=== PATIENT | male | born 1980 | race Caucasian/White ===

== ENCOUNTER → 2021-05-11 13:44 | Outpatient (CLI) | payer OTHER, SELFPAY ==
--- NOTE | 2021-05-11 | DI.MRI.S_ITS ---
PROCEDURE: MR KNEE LT WO CON INDICATIONS: Unspecified internal derangement of left knee TECHNIQUE: Noncontrast sagittal PD fast spin echo and T2 fast spin echo with fat saturation, sagittal 3-D FLASH with fat saturation; coronal T1 spin echo and PD fast spin echo with fat saturation, and axial PD fast spin echo with fat saturation through the knee. COMPARISON: [facility] [place], CR, XR KNEE ARTHRITIC SERIES BI, 03/07/2021, 14:24. FINDINGS: Menisci: Medial meniscus: Intact. Lateral meniscus: Intact. Cruciate ligaments: Anterior cruciate ligament: Intact. Posterior cruciate ligament: Intact. Medial structures: The medial collateral ligament: Intact. Semimembranosus tendon: Intact. Visualized pes anserinus tendons: Intact. Bursal fluid: none. Lateral structures: The lateral collateral ligament intact. Biceps femoris tendon appears intact. Popliteus tendon grossly unremarkable. Iliotibial band appears intact. Anterior structures: Quadriceps tendon: Intact. Medial patellofemoral ligament: Intact. Lateral patellofemoral ligament: Thickening and adjacent soft tissue edema at the patellar attachment. This suggests low-grade strain Patellar tendon: Mild tendinopathy. Anterior soft tissues: Prepatellar and superficial infrapatellar subcutaneous edema/fluid. Deep infrapatellar region: Normal. Bones and cartilage: Marrow: No focal marrow contusion or discrete low signal fracture line. Medial compartment: No focal chondral defect. Lateral compartment: No focal chondral defect. Patellofemoral compartment: Mild fissuring of the cartilage overlying the central femoral trochlea otherwise no focal chondral defect. Joint space: Effusion: No pathologic knee joint effusion. Popliteal fossa: Trace fluid between the semimembranosus and medial gastrocnemius tendons without definite formed cyst. Loose bodies: None. IMPRESSION: Patellar tendinopathy Low-grade strain of the lateral patellofemoral ligament, at the patellar attachment. Mild patellofemoral chondromalacia Dictated by: Aj Simpson M.D. on 05/11/2021 at 14:53 Approved by: Aj Simpson M.D. on 05/11/2021 at 14:59
== END ==
PROVIDERS: PCP Student in an Organized Health Care Education/Training Program; Referring Provider Physical Medicine & Rehabilitation Pain Medicine; Visit Provider Physical Medicine & Rehabilitation Pain Medicine
DX: M23.92 Unspecified internal derangement of left knee (principal); S76.112A Strain of left quadriceps muscle, fascia and tendon, initial encounter; M22.42 Chondromalacia patellae, left knee
CPT/HCPCS: 73721

== ENCOUNTER 2022-12-07 09:06 | Day surgery (SDC) | payer OTHER, SELFPAY ==
[2022-12-05 14:45] VITALS: BMI 27.9
[2022-12-07] MEDS: OXYMETAZOLINE NASAL SPRAY 15 ML 2 SPRAYS NASAL ×2 (09:49→11:30)
[2022-12-07] MEDS: LACTATED RINGERS 1,000 ML 42 ML IV ×2 (09:52→11:47)
[2022-12-07 09:55] VITALS: BP 115/80; PULSE 69; RESP 16; TEMP 36.6; O2SAT 99; BMI 26.9
--- NOTE | 2022-12-07 10:19 | PM.PREOP ---
Pre-operative Note Interval Note History & Physical reviewed/Exam performed by Physician: Yes Changes to H&P: No
--- NOTE | 2022-12-07 10:31 | PM.HP.1 ---
History of Present Illness History of Present Illness Date Patient Seen: 12/07/22 Time Patient Seen: 10:32 Chief complaint: Septoplasty Narrative: 41-year-old male with known right septal deviation and ongoing right greater than left nasal obstruction, last seen 10/25/2022 in clinic, presents for septoplasty and inferior turbinate reduction. No interval health changes, wishes to proceed. Patient History Medical History Chronic cough Chronic rhinitis Joint pain Mild sleep apnea Nasal obstruction Nasal septal deviation Nasal turbinate hypertrophy Neck injury Seasonal allergies Surgical History H/O vasectomy History of back surgery Hx of foot surgery (2002) Hx of LASIK Hx of shoulder surgery Hx of tonsillectomy Family & Social History Social History: household members spouse Tobacco & Substance use: Smoking Status Never smoker alcohol intake current alcohol intake frequency a few times a week Substance Use Type does not use Meds Home Medications and Allergies Home Medications Medication Instructions Recorded Confirmed Type bupropion HCl 300 mg 24 hr tablet, 300 mg PO DAILY 12/05/22 12/07/22 History extended release cetirizine 10 mg tablet 10 mg PO DAILY 12/05/22 12/07/22 History fluticasone propionate 50 1 spray intranasal DAILY 12/05/22 12/07/22 History mcg/actuation nasal spray,suspension loratadine 10 mg tablet (Claritin) 10 mg PO DAILY 12/05/22 12/07/22 History Allergies Allergy/AdvReac Type Severity Reaction Status Date / Time No Known Drug Allergies Allergy Verified 12/07/22 09:46 Review of Systems Review of Systems Narrative: Negative except as listed in the HPI Exam Vital Signs (past 8 hours): - 12/07/22 09:55 Temperature 97.8 F Pulse Rate 69 Respiratory Rate 16 Blood Pressure 115/80 Pulse Oximetry 99 Oxygen Delivery Method Room Air Oxygen Delivery Method Room Air Narrative Exam Narrative: Well-developed well-nourished, heart regular rate and rhythm without murmur, lungs clear to auscultation bilaterally Assessment & Plan Assessment & Plan narrative: Assessment: Nasal airway obstruction, septal deviation, inferior turbinate hypertrophy, chronic rhinitis and mild PARISH Plan: Following discussion of the material risks benefits complications and alternatives, the patient elected to proceed. Time Spent With Patient Critical Care time: I spent a total of [] minutes of critical care time on this patient's care today; this time is exclusive of procedural time.
--- NOTE | 2022-12-07 10:35 | PM.OP.1 ---
Operative Date/Time/Diagnoses Date of procedure: 12/07/22 Time of procedure: 11:57 Pre-op diagnosis: Nasal airway obstruction, septal deviation, inferior turbinate hypertrophy, mild PARISH, chronic rhinitis Post-op diagnosis: same Procedure & Clinicians Procedure: 1. Septoplasty 2. Bilateral inferior turbinate reduction via intramural cautery Same procedure as scheduled: Yes Indications: 41 Year old with the above diagnoses incompletely managed with medical therapy presents for the above procedure. Following discussion of the material risks benefits complications and alternatives, the patient elected to proceed. Surgeon: Chuy Thurman Click Yes if Unassisted: Yes Anesthesia Type: General and Local Operative Notes Findings: 3+ right septal deviation, bony and cartilaginous, [id number]-right inferior turbinate hypertrophy. RIGHT posterior small flap tear, few mm LEFT ant perforation. Estimated Blood Loss (mL): 40 Procedure in detail: Following identification and confirmation of consent as well as preoperative Afrin nasal spray, the patient was brought to the operating room suite and placed in the supine position. General endotracheal anesthesia was administered. I infiltrated the septum widely bilaterally with 1% lidocaine 1 100,000 epinephrine followed by temporary packing with cotton with Afrin and 4% lidocaine. Following sterile prep and drape, the packing was removed and I performed a right vel-transfixion incision, elevated the right mucoperichondrial and mucoperiosteal flap. I disarticulated near the bony/cartilaginous junction and elevated the left mucoperiosteal flap. Deviated portions of the perpendicular plate of the ethmoid and vomer were resected. The residual quadrilateral cartilage was further straightened by trimming it inferiorly as well as reducing the maxillary crest. A 2 mm strip of cartilage paralleling the residual 1 cm dorsal and caudal strut was resected to further straighten the quadrilateral cartilage. The hemitransfixion incision was closed with interrupted 5 0 chromic followed by a running 4 0 plain gut mattress suture to reapproximate the septal flaps. At case completion, 20/1000th of an inch silastic splints were placed bilaterally, sutured anteriorly with a single 4 0 nylon. The head of each inferior turbinate had been previously infiltrated with additional local anesthetic and a 25 gauge spinal needle was used to impale the length of the turbinate, with cautery on a setting of 15 activated on slow withdrawal over 2 passes on the LEFT, a single pass on the RIGHT. The turbinates were then outfractured. The procedure completed, sponge and needle counts were correct and the patient was extubated in the operating room and taken to recovery room in stable condition without known complication. Postoperative care: Nasal saline every hour while awake, Vaseline or Polysporin to the nostrils at all times, begin irrigations t.i.d. beginning pod 1. Humidifier at the bedside blowing on the face. Tylenol alternating with Advil for pain control, oxycodone if necessary for breakthrough pain. Complications: none Post-operative Condition: stable Disposition: same day surgery Plan for aftercare: Nasal saline every hour while awake, begin irrigations t.i.d. tomorrow if desired. Polysporin to the nostrils at all times, Tylenol alternating with Advil for pain control, oxycodone for breakthrough pain. Elevate head of bed, no nose blowing, no straining for 2 weeks. Ice directly under the nose on the upper lip has tolerated 24-48 hours at a minimum. Follow-up in 1 week for nasal splint removal.
--- NOTE | 2022-12-07 11:19 | SUR.OPER ---
Supine on padded OR bed, head ongel doughnut, arms padded and tucked at sides, legs uncrossed, safety belt at thigh, tape over blanket over lower legs .
[2022-12-07] MEDS: LIDOCAINE 1% W/EPI 20 ML INJ (11:31)
[2022-12-07] MEDS: LIDOCAINE 4% SOLN 50 ML 20 ML TOP (11:32)
[2022-12-07 12:29] VITALS: BP 97/52; PULSE 76; RESP 12; TEMP 36.1; O2SAT 96
[2022-12-07 12:33] VITALS: BP 101/55; PULSE 76; RESP 12; TEMP 36.4; O2SAT 94
[2022-12-07 12:39] VITALS: BP 108/65; PULSE 76; RESP 11; TEMP 36.6; O2SAT 93
[2022-12-07 12:47] VITALS: BP 113/70; PULSE 73; RESP 11; TEMP 36.3; O2SAT 97
== END 2022-12-07 13:26 | disposition home or self-care (01) ==
PROVIDERS: PCP Student in an Organized Health Care Education/Training Program; Referring Provider Otolaryngology; Visit Provider Otolaryngology
PROC: (CPT 30520; principal; 2022-12-07 10:30)
PROC: (CPT 30802; 2022-12-07 10:30)
DX: J34.2 Deviated nasal septum (principal); J34.89 Other specified disorders of nose and nasal sinuses; J34.3 Hypertrophy of nasal turbinates; J31.0 Chronic rhinitis; G47.33 Obstructive sleep apnea (adult) (pediatric)
CPT/HCPCS: 30802; 30520; J0330; J1100; J1170; J2704

== ENCOUNTER → 2023-09-04 08:36 | Outpatient (CLI) | payer OTHER, SELFPAY ==
[2023-09-04 09:53] LABS: Add Manual Diff / Slide Review NO; Basophils Absolute Auto 100 /uL (0-100); Basophils Percent Auto 1.1 % (0-2); Eosinophils Absolute Auto 300 /uL (0-450); Hematocrit 42.2 % (41-53); Hemoglobin 14.5 g/dL (13.5-17.5); Lymphocytes Absolute Auto 2100 /uL (1100-4500); Lymphocytes Percent Auto 32.4 % (25-40); Mean Corpuscular HGB Conc 34.3 % (30-36); Mean Corpuscular Hemoglobin 29.4 PG (26-34); Mean Corpuscular Volume 85.9 fL (80-100); Monocytes Absolute Auto 500 /uL (0-900); Monocytes Percent Auto 8.2 % (3-14); Neutrophils Absolute Auto 3600 /uL (1500-7000); Neutrophils Percent Auto 54.3 % (50-75); Platelet Count 271 X10^3/uL (150-400); Red Blood Cell Count 4.92 X10^6/uL (4.5-5.9); Red Cell Distribution Width 12.7 % (11.6-14.8); White Blood Cell Count 6.6 X10^3/uL (4.5-11.0)
[2023-09-04 10:26] LABS: Alanine Aminotransferase 91 IU/L (<50); Albumin 4.1 g/dL (3.5-5.0); Albumin Globulin Ratio 1.6 (1.0-2.8); Alkaline Phosphatase 40 U/L (38-126); Aspartate Aminotransferase 47 IU/L (17-59); BUN Creatinine Ratio 16.3 (6-22); Bilirubin Total 0.6 mg/dL (0.2-1.3); Blood Urea Nitrogen 13 mg/dL (9-20); Calcium 9.7 mg/dL (8.4-10.2); Carbon Dioxide 30 mmol/L (22-32); Chloride 103 mmol/L (98-107); Cholesterol 199 mg/dL (140-199); Estimated Glomerular Filt Rate > 60 mL/min (>60); Globulin 2.5 g/dL (1.7-4.1); Glucose 113 mg/dL (70-100); HDL Cholesterol 46 mg/dL (40-60); HEMOLYSIS < 15 (0-50); LDL Cholesterol Calculated 130 mg/dL (<100); Potassium 4.6 mmol/L (3.4-5.1); Sodium 137 mmol/L (137-145); Total Protein 6.6 g/dL (6.3-8.2); Triglycerides 113 mg/dL (35-150)
== END ==
PROVIDERS: PCP Family Medicine; Referring Provider Family Medicine; Visit Provider Family Medicine
DX: Z13.220 Encounter for screening for lipoid disorders (principal); K62.5 Hemorrhage of anus and rectum; M54.50 Low back pain, unspecified; Z86.59 Personal history of other mental and behavioral disorders
CPT/HCPCS: 36415; 80053; 80061; 85025

== ENCOUNTER → 2024-09-02 09:11 | Outpatient (CLI) | payer OTHER, SELFPAY ==
[2024-09-02 10:31] LABS: Alanine Aminotransferase 51 IU/L (<50); Albumin 4.3 g/dL (3.5-5.0); Albumin Globulin Ratio 1.7 (1.0-2.8); Alkaline Phosphatase 48 U/L (38-126); Aspartate Aminotransferase 39 IU/L (17-59); BUN Creatinine Ratio 19.4 (6-22); Bilirubin Total 0.6 mg/dL (0.2-1.3); Blood Urea Nitrogen 19 mg/dL (9-20); Carbon Dioxide 30 mmol/L (22-32); Chloride 105 mmol/L (98-107); Cholesterol 219 mg/dL (140-199); Estimated Glomerular Filt Rate > 60 mL/min (>60); Globulin 2.6 g/dL (1.7-4.1); Glucose 105 mg/dL (70-100); HDL Cholesterol 47 mg/dL (40-60); HEMOLYSIS < 15 (0-50); LDL Cholesterol Calculated 147 mg/dL (<100); Sodium 139 mmol/L (137-145); Total Protein 6.9 g/dL (6.3-8.2); Triglycerides 125 mg/dL (35-150)
[2024-09-02 10:40] LABS: Potassium 4.7 mmol/L (3.4-5.1)
[2024-09-02 11:37] LABS: HIV 1 & 2 Ab/Ag 4th Gen Combo NEGATIVE (NEGATIVE); Hep C Virus Ab w/Reflex Quant NEGATIVE s/c (NEGATIVE)
[2024-09-02 12:43] LABS: Hemoglobin A1C% w Est Avg Glu 5.5 % (4.0-6.0)
== END ==
PROVIDERS: PCP Family Medicine; Referring Provider Family Medicine; Visit Provider Family Medicine
DX: Z00.00 Encounter for general adult medical examination without abnormal findings (principal)
CPT/HCPCS: 36415; 80053; 80061; 83036; 86803; 87389

== ENCOUNTER → 2025-09-15 16:38 | Outpatient (CLI) | payer OTHER, SELFPAY ==
[2025-09-15 18:21] LABS: Hematocrit 42.1 % (41-53); Hemoglobin 14.6 g/dL (13.5-17.5); Mean Corpuscular HGB Conc 34.6 % (30-36); Mean Corpuscular Hemoglobin 29.8 PG (26-34); Mean Corpuscular Volume 86.1 fL (80-100); Platelet Count 309 X10^3/uL (150-400)
[2025-09-15 18:30] LABS: Hemoglobin A1C% w Est Avg Glu 5.6 % (4.0-6.0)
[2025-09-15 18:44] LABS: Alanine Aminotransferase 72 IU/L (<50); Albumin 4.7 g/dL (3.5-5.0); Albumin Globulin Ratio 1.9 (1.0-2.8); Alkaline Phosphatase 49 U/L (38-126); Blood Urea Nitrogen 19 mg/dL (9-20); Calcium 9.8 mg/dL (8.4-10.2); Carbon Dioxide 29 mmol/L (22-32); Chloride 101 mmol/L (98-107); Cholesterol 222 mg/dL (140-199); Estimated Glomerular Filt Rate > 60 mL/min (>60); Globulin 2.5 g/dL (1.7-4.1); Glucose 92 mg/dL (70-99); HDL Cholesterol 63 mg/dL (40-60); HEMOLYSIS < 15 (0-50); Potassium 4.2 mmol/L (3.4-5.1); Sodium 139 mmol/L (137-145); Total Protein 7.2 g/dL (6.3-8.2); Triglycerides 162 mg/dL (35-150)
== END ==
PROVIDERS: PCP Family Medicine; Referring Provider Family Medicine; Visit Provider Family Medicine
DX: Z00.00 Encounter for general adult medical examination without abnormal findings (principal); R10.9 Unspecified abdominal pain
CPT/HCPCS: 36415; 80053; 80061; 83036; 85027